=== PATIENT | male | born 2000 | race Caucasian/White ===

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

== ENCOUNTER 2023-09-20 12:26 | Emergency (ER) | payer MEDICAID, SELFPAY ==
[2023-09-20] MEDS ORDERED: Bacitracin 1 PK ONE (12:54)
[2023-09-20] MEDS ORDERED: Lidocaine 1% PF 5 ML VIAL ONE (12:55)
[2023-09-20] MEDS ORDERED: Boostrix 0.5 ML (Tdap) VIAL (>/=7 yrs of age) ONE (12:55)
== END 2023-09-20 13:37 | disposition home or self-care (01) ==
LOC: MADERS 12:26
DX: S61.412A Laceration without foreign body of left hand, initial encounter (principal); F17.210 Nicotine dependence, cigarettes, uncomplicated; W26.9XXA Contact with unspecified sharp object(s), initial encounter
CPT/HCPCS: 12041; 90471; 90715

== ENCOUNTER 2023-09-28 14:37 | Emergency (ER) | payer SELFPAY | END 2023-09-28 14:54 | disposition home or self-care (01) | LOC: MADERS 14:37 | DX: S61.412D Laceration without foreign body of left hand, subsequent encounter (principal); F17.210 Nicotine dependence, cigarettes, uncomplicated; F17.290 Nicotine dependence, other tobacco product, uncomplicated; W26.9XXD Contact with unspecified sharp object(s), subsequent encounter ==

== ENCOUNTER 2024-12-05 14:28 | Emergency (ER) | payer SELFPAY ==
[2024-12-05] MEDS ORDERED: Boostrix 0.5 ML (Tdap) VIAL (>/=7 yrs of age) ONE (15:24)
== END 2024-12-05 15:36 | disposition home or self-care (01) ==
LOC: MADERS 14:28
DX: S61.210A Laceration without foreign body of right index finger without damage to nail, initial encounter (principal); Z23 Encounter for immunization; W22.8XXA Striking against or struck by other objects, initial encounter; Y99.0 Civilian activity done for income or pay
CPT/HCPCS: 90471; 90715